=== PATIENT | female | born 1945 | race Caucasian/White ===

== ENCOUNTER 2020-07-11 18:03 | Emergency (ER) | payer MEDICARE, OTHER ==
[~2020-07-11] VITALS: Ht 157.5 cm; Wt 71.2 kg
[2020-07-11 18:03] VITALS: BP 154/89
[2020-07-11] MEDS ORDERED: LIDOCAINE/EPI/TETRACAINE TOPICAL GEL 3 ML. TP ONE (18:30)
--- NOTE | 2020-07-11 18:30 | PHYS DOC ---
Adult General Chief Complaint Chief Complaint: MECHANICAL FALL HPI HPI Patient is an otherwise healthy 75-year-old female, who is up-to-date on her tetanus vaccination who states she was outside playing catch with her grandson, tripped and fell backwards and hit the back of her head on the driveway. States that this was about an hour before coming to the emergency department. Denies loss of consciousness, changes in vision, neck pain, chest pain, shortness of breath, abdominal pain, nausea, vomiting. Denies any numbness/weakness/tingling. Denies any trouble sitting, standing or walking. Review of Systems Review of Systems Review of systems otherwise unremarkable except noted in HPI Current Medications Current Medications Current Medications Medications (Trade) Dose Ordered Sig/Zohaib Start Time Stop Time Status Last Admin Dose Admin Lidocaine/ Epinephrine (Let ([id number]) Gel) 3 ml 1X ONCE 07/11/20 18:30 07/11/20 18:31 UNV Physical Exam Physical Exam Constitutional: Well developed, well nourished, no acute distress, non-toxic appearance. [] HENT: 2 cm linear occipital laceration, with bleeding controlled and no skull seen. No hemotympanums, bilateral external ears normal, oropharynx moist, no oral exudates, nose normal. [] Eyes: PERRLA, EOMI, conjunctiva normal, no discharge. [] Neck: Normal range of motion, no tenderness, Cardiovascular:Heart rate regular rhythm, no murmur [] Lungs & Thorax: Bilateral breath sounds clear to auscultation [] Abdomen: soft, no tenderness, no masses, no pulsatile masses. [] Skin: Warm, dry, no erythema, no rash. [] Back: No tenderness, Extremities: No tenderness, ROM intact, no edema. [] Neurologic: Alert and oriented X 3, able to sit, stand and walk without issue, no focal deficits noted. [] Psychologic: Affect normal, judgement normal, mood normal. [] EKG EKG [] Radiology/Procedures Radiology/Procedures []Exam: CT head INDICATION: Fall TECHNIQUE: Sequential axial images through the head were obtained without the administration of IV contrast. Exposure: One or more of the following in the visualized dose reduction techniques were utilized for this examination: 1. Automated exposure control 2. Adjustment of the MA and/or KV according to patient size 3. Use of iterative of reconstructive technique Comparisons: None FINDINGS: No focal parenchymal lesion or hemorrhage is identified. There is no midline shift or sulcal effacement. Patchy evidence in the periventricular white matter. No acute vascular territory infarction is identified. Cerna-white distinction is preserved. The ventricular system is within normal limits without compression hydrocephal us. The basal cisterns are well maintained. The visualized portions of the paranasal sinuses and mastoid air cells are well-pneumatized. No acute fractures. IMPRESSION: Moderate small vessel schema change, technically age indeterminate without recent prior imaging. Electronically signed by: Harsh Arteaga MD (07/11/2020 7:17 PM) [facility] Wound is 2 cm on posterior scalp, linear. LET placed for topical anesthesia. Anesthesia achieved. 2 reymundo placed without complication. Cleaned again with sterile water. Heart Score C/O Chest Pain: No Risk Factors: Risk Factors: DM, Current or recent (<one month) smoker, HTN, HLP, family history of CAD, obesity. Risk Scores: Risk Factors: DM, Current or recent (<one month) smoker, HTN, HLP, family history of CAD, obesity. Course & Med Decision Making Course & Med Decision Making Patient is a 75-year-old female who presents to the emergency department with a chief complaint of fall and posterior head laceration Vital signs not concerning. Physical exam noted above. Patient awake, alert, pleasant and cooperative. Up-to-date on tetanus, [address] of the head not concerning for fractures, bleeds. Wound cleaned. L ET placed for topical anesthesia. 2 reymundo placed without complication. Gave patient pain medication. Discussed all findings with family and advised to call primary care physician first thing the morning to set up a follow-up visit in 7 to 10 days for wound check and staple removal. Gave return precautions to the ED. Patient grateful, verbalized understanding and agreed with plan of discharge. [] Dragon Disclaimer Dragon Disclaimer This electronic medical record was generated, in whole or in part, using a voice recognition dictation system. Departure Departure: Impression: Primary Impression: Fall Additional Impression: Laceration of head Disposition: HOME / SELF CARE / HOMELESS Condition: GOOD Referrals: PCP,NO (PCP) Patient Instructions: Laceration Care, Adult, Wound Care, [id number] Additional Instructions: Please read all of the attached information very carefully. As discussed you can use Tylenol, ibuprofen and ice as needed at home, and tolerated as long as you are allowed and not allergic. Please call your primary care physician first thing in the morning to update on ED visit and set up a follow-up appointment in 7 to 10 days for a wound check and suture removal. Please come back to the emergency department immediately with new or concerning symptoms as discussed. Problem Qualifiers MICHAEL ORTEGA MD July 11, 2020 18:30
--- NOTE | 2020-07-11 19:19 | RAD ---
Exam: CT head INDICATION: Fall TECHNIQUE: Sequential axial images through the head were obtained without the administration of IV co ntrast. Exposure: One or more of the following in the visualized dose reduction techniques were utilized for this examination: 1. Automated exposure control 2. Adjustment of the MA and/or KV according to patient size 3. Use of iterative of reconstructive technique Comparisons: None FINDINGS: No focal parenchymal lesion or hemorrhage is identified. There is no midline shift or sulcal effaceme nt. Patchy evidence in the periventricular white matter. No acute vascular territory infarction is identi fied. Cerna-white distinction is preserved. The ventricular system is within normal limits without compression hydrocephalus. The basal cisterns are well maintained. The visualized portions of the paranasal sinuses and mastoid air cells are well-pneumatized. No acute fractures. IMPRESSION: Moderate small vessel schema change, technically age indeterminate without recent prior imaging. Electronically signed by: Harsh Arteaga MD (07/11/2020 7:17 PM) [facility]
[2020-07-11] MEDS ORDERED: oxyCODONE/APAP 5/325 1 TAB TABLET PO ONE (20:00)
== END 2020-07-11 20:09 | disposition home or self-care (01) ==
LOC: ER 18:03
DX: S01.01XA Laceration without foreign body of scalp, initial encounter (principal); W01.0XXA Fall on same level from slipping, tripping and stumbling without subsequent striking against object, initial encounter; Y93.89 Activity, other specified; Y92.89 Other specified places as the place of occurrence of the external cause; Y99.8 Other external cause status
CPT/HCPCS: 12001; 70450; 99284